=== PATIENT | female | born 1985 | race Caucasian/White ===

== ENCOUNTER 2018-08-27 17:21 | Inpatient (IN) | payer OTHER ==
[2018-08-27] MEDS ORDERED: Lactated Ringers 1000 ML Bag* 1,000 ML IV ONE (18:14)
[2018-08-27] MEDS ORDERED: ceFOXitin 2 GM IVPREMIX* 2 GM/50 ML BAG IVPB ONE (18:14)
[2018-08-27] MEDS ORDERED: Sodium Citrate/Citric Acid* 15 ML UDC PO ONE (18:14)
[2018-08-27] MEDS ORDERED: Buffered Lidocaine 1% SYRIN* 1 ML/SYRINGE INTRADERM ONE (18:14)
[2018-08-27] MEDS ORDERED: Lactated Ringers 1000 ML Bag* 1,000 ML IV SCH ×2 (19:00→21:00)
[2018-08-27] MEDS ORDERED: DiMENhydriNATE IV* 50 MG/ML VIAL IV PUSH PRN (20:11)
[2018-08-27] MEDS ORDERED: fentaNYL* 50 MCG/ML 2 ML VIAL (100 MCG VIAL) IV PRN (20:11)
[2018-08-27] MEDS ORDERED: Naloxone* 0.4 MG/ML 1 ML VIAL IV PRN ×2 (20:11)
[2018-08-27] MEDS ORDERED: diPHENhydraMINE IV* 50 MG/ML 1 ml VIAL (BENADRYL) IV PRN (20:11)
[2018-08-27] MEDS ORDERED: Ondansetron INJ* 2 MG/ML VIAL IV PRN ×2 (20:11)
[2018-08-27] MEDS ORDERED: Nalbuphine* 10 MG/ML 1 ML VIAL IV PRN (20:11)
[2018-08-27] MEDS ORDERED: Glycerin ADULT SUPP PR PRN (20:53)
[2018-08-27] MEDS ORDERED: Dibucaine 1% 28.35 GM TUBE PR PRN (20:53)
[2018-08-27] MEDS ORDERED: oxyCODONE/Acetamin 5/325 MG* TAB PO PRN ×2 (20:53)
[2018-08-27] MEDS ORDERED: Acetaminophen TAB* 325 MG PO PRN (20:53)
[2018-08-27] MEDS ORDERED: Witch Hazel PAD* JAR TOPICAL PRN (20:53)
[2018-08-27] MEDS ORDERED: Oxytocin in LR* 20 UNITS/1,000 ML BAG IVPB ONE (20:57)
[2018-08-27] MEDS ORDERED: Oxytocin in LR* 20 UNITS/1,000 ML BAG IVPB SCH (21:00)
--- NOTE | 2018-08-27 23:20 | OP ---
DATE OF OPERATION: 08/27/18 - ROOM #115 DATE OF : 81 SURGEON: Angel Luis Man MD MANAGER DOCUMENT: Daily Oliva CNM ANESTHESIA: Spinal. PRE-OP DIAGNOSES: Previous section and spontaneous rupture of membranes. POST-OP DIAGNOSES: Previous section and spontaneous rupture of membranes. OPERATIVE PROCEDURE: Low transverse section. ESTIMATED BLOOD LOSS: 600 cc. COMPLICATIONS: None. FINDINGS: This is a 33-year-old who was scheduled for an elective repeat section on the day after admission into the hospital. She presented on 08/27/18 at 2100 after having rupture of membranes at approximately 0300 of that morning. At the time of , she had a viable male. Apgars 8 and 9. Weight was 8 pounds 9 ounces. Normal-appearing uterus, fallopian tubes, and ovaries. She did have dense adhesions of the anterior bladder flap to the anterior abdominal wall. DESCRIPTION OF PROCEDURE: The patient was identified and procedure identified as a low transverse section. The patient was taken to the operating room, prepped and draped in usual fashion in the left lateral recumbent position under spinal anesthesia. A Pfannenstiel incision was made in the abdomen and carried down through fat, fascia, and peritoneum. A transverse incision was made in the lower uterine segment and extended laterally using blunt dissection. The above infant was delivered through the incision. Initially it was unable to be delivered and then with cutting of the left rectus muscle about half an inch and then extending the skin incision approximately another half an inch, the baby was able to be delivered with ease. The cord was doubly clamped and cut and the infant was handed to the awaiting flight engineer helicopter. Cord blood was obtained. Placenta delivered spontaneously. The uterus was wiped out with wet lap sponge. The uterine incision was then closed using 0 Polysorb in a running fashion. Hemostasis achieved in the uterus. Second layer was used to imbricate the first layer. Uterus was placed back in the abdominal cavity. Because of the dense adhesions in the anterior abdominal wall and uncertainty about the bladder's intactness, 250 cc of methylene blue was placed retrograde into the bladder and it was seen to fill and no blue dye was seen outside the bladder or in the field. This was drained out. The peritoneum was then closed using 3-0 Polysorb in a running fashion. Good hemostasis was achieved in the subrectus layers. The rectus where it had been cut was reapproximated using 3-0 Polysorb in a simple fashion. The fascia was closed with 3-0 Polysorb in a running fashion. Good hemostasis achieved in the subcu. Copious irrigation was utilized and suctioned out and the skin was closed with 4-0 Monocryl in a subcuticular fashion. All sponge and instrument counts were correct. [id number]/[facility] #: [id number] [facility]ITALKamran
[2018-08-27] MEDS: Simethicone TAB* 80 MG TAB.CHEW PO SCH (23:27)
[2018-08-27] MEDS: Docusate CAP* 100 MG PO SCH (23:28)
[2018-08-27] MEDS: oxyCODONE/Acetamin 5/325 MG* TAB PO PRN (23:28)
[2018-08-28] MEDS: Ketorolac INJ* 30 MG/ML 1 ML VIAL IV PRN ×3 (02:19→15:51)
[2018-08-28] MEDS: oxyCODONE/Acetamin 5/325 MG* TAB PO PRN ×5 (04:16→21:33)
[2018-08-28 07:37] LABS: ABS Lymphocytes 1.3 10^3/ul (1.0-4.8); ABS Monocytes 0.9 10^3/ul (0-0.8); ABS Neutrophils 5.7 10^3/ul (1.5-7.7); Eosinophil % 0.4 %; Hematocrit 29 % (35-47); Hemoglobin 9.5 g/dL (12.0-16.0); Lymphocyte % 16.6 %; Mean Corpuscular HGB Conc 33 g/dL (31-36); Mean Corpuscular Hemoglobin 27 pg (27-31); Mean Corpuscular Volume 84 fL (80-97); Mean Platelet Volume 8.5 fL (7.4-10.4); Platelet Count 181 10^3/uL (150-450); Red Cell Distribution Width 14 % (10.5-15)
[2018-08-28] MEDS: Docusate CAP* 100 MG PO SCH ×3 (09:17→21:33)
[2018-08-28] MEDS: Ferrous Gluconate TAB* 324 MG TAB PO SCH ×2 (09:17→21:33)
[2018-08-28] MEDS: Simethicone TAB* 80 MG TAB.CHEW PO SCH ×4 (09:19→21:33)
[2018-08-28] MEDS ORDERED: oxyCODONE/Acetamin 5/325 MG* TAB PO PRN (11:45)
[2018-08-28] MEDS ORDERED: Zolpidem TAB* 5 MG PO PRN (21:00)
[2018-08-28] MEDS: Ibuprofen TAB* 600 MG PO PRN (21:32)
[2018-08-29] MEDS: oxyCODONE/Acetamin 5/325 MG* TAB PO PRN ×5 (01:19→21:59)
[2018-08-29] MEDS: Ibuprofen TAB* 600 MG PO PRN ×3 (03:54→20:28)
[2018-08-29] MEDS: Simethicone TAB* 80 MG TAB.CHEW PO SCH ×4 (08:06→20:28)
[2018-08-29] MEDS: Ferrous Gluconate TAB* 324 MG TAB PO SCH ×2 (08:06→20:28)
[2018-08-29] MEDS: Docusate CAP* 100 MG PO SCH ×3 (08:06→20:28)
[2018-08-30] MEDS: Ibuprofen TAB* 600 MG PO PRN ×2 (02:25→08:54)
[2018-08-30] MEDS: oxyCODONE/Acetamin 5/325 MG* TAB PO PRN ×2 (02:25→06:27)
[2018-08-30] MEDS: Docusate CAP* 100 MG PO SCH (08:54)
[2018-08-30] MEDS: Simethicone TAB* 80 MG TAB.CHEW PO SCH (08:54)
[2018-08-30] MEDS: Ferrous Gluconate TAB* 324 MG TAB PO SCH (08:54)
[2018-08-30 10:04] VITALS: BP 106/68
== END 2018-08-30 11:18 | disposition home or self-care (01) | DRG 788 ==
LOC: MCHOBOUT 17:21 → MCHOB 18:07
PROVIDERS: ADMIT Obstetrics & Gynecology; ATTEND Obstetrics & Gynecology
PROC: 4A1HXCZ Monitoring of Products of Conception, Cardiac Rate, External Approach (ICD-10-PCS; 2018-08-27)
PROC: 10D00Z1 Extraction of Products of Conception, Low, Open Approach (ICD-10-PCS; principal; 2018-08-27 19:40)
DX: O34.211 Maternal care for low transverse scar from previous cesarean delivery (principal); O99.824 Streptococcus B carrier state complicating childbirth; O99.89 Other specified diseases and conditions complicating pregnancy, childbirth and the puerperium; N73.6 Female pelvic peritoneal adhesions (postinfective); O90.81 Anemia of the puerperium; Z3A.39 39 weeks gestation of pregnancy; Z37.0 Single live birth
CPT/HCPCS: 36415; 84112; 85025; A9270-GY; J0694; J1885